=== PATIENT | male | born 1990 | race Caucasian/White ===

== ENCOUNTER → 2022-12-02 | Outpatient (CLI) | payer OTHER ==
--- NOTE | 2022-12-02 21:30 | MR ---
EXAMINATION TYPE: MR lumbar spine wo con DATE OF EXAM: 12/02/2022 9:16 PM COMPARISON: NONE HISTORY: Hx of back pain - recheck Multiplanar, MultiSpin echo imaging of the lumbar spine was performed. L1-L2: Normal disc appearance without desiccation. No herniation, protrusion or disc bulging. No ca nal stenosis is present. Foramina are patent bilaterally. L2-L3: Normal disc appearance without desiccation. No herniation, protrusion or disc bulging. No ca nal stenosis is present. Foramina are patent bilaterally. L3-L4: Normal disc appearance without desiccation. No herniation, protrusion or disc bulging. No ca nal stenosis is present. Foramina are patent bilaterally. L4-L5: Moderate disc desiccation. Subligamentous disc herniation with effacement of the ventral theca l sac. Right greater than left lateral recess stenosis. Borderline central stenosis. Foramina are pat ent bilaterally. L5-S1: Disc desiccation posterior disc bulge. No evidence for disc herniation. No central stenosis or foraminal encroachment. Lumbar segments are intact. No paraspinal masses are identified. Conus medullaris has a normal appe arance. Incidental partially imaged right renal cyst. IMPRESSION: 1. L4-5 mild subligamentous disc herniation effaces the ventral thecal sac and results in bilateral r ight greater than left lateral recess stenosis.
== END | disposition home or self-care (01) ==
LOC: RADMRIMAIN 20:15
DX: M51.26 Other intervertebral disc displacement, lumbar region (principal); M48.061 Spinal stenosis, lumbar region without neurogenic claudication
CPT/HCPCS: 72148